=== PATIENT | male | born 1965 | race Caucasian/White ===

== ENCOUNTER 2022-11-07 09:03 | Emergency (ER) | payer BC, OTHER ==
[2022-11-07] MEDS ORDERED: Albuterol/Ipratropium 3.0-0.5 MG/3 ML Neb Soln NEB ONE (09:26)
[2022-11-07] MEDS ORDERED: methylPREDNISolone Sodium Succinate 125 MG/2 ML SDV IVPUSH ONE (09:26)
[2022-11-07 09:55] LABS: CORONAVIRUS COVID-19 NAA NEGATIVE (NEGATIVE); RESPIRATORY SYNCYTIAL VIR NAA NEGATIVE (NEGATIVE)
== END 2022-11-07 11:19 | disposition home or self-care (01) ==
LOC: DL.ED 09:03
DX: J10.1 Influenza due to other identified influenza virus with other respiratory manifestations (principal); J20.9 Acute bronchitis, unspecified; H61.21 Impacted cerumen, right ear; E78.00 Pure hypercholesterolemia, unspecified; I10 Essential (primary) hypertension; E11.9 Type 2 diabetes mellitus without complications; Z79.899 Other long term (current) drug therapy; Z79.84 Long term (current) use of oral hypoglycemic drugs; Z20.822 Contact with and (suspected) exposure to COVID-19
CPT/HCPCS: 0241U; 71046; 94640; 96374; 99284; 99285; J2930; J7620-GY

== ENCOUNTER 2023-08-14 14:53 | Emergency (ER) | payer OTHER, BC | END 2023-08-14 16:52 | disposition home or self-care (01) | LOC: DL.ED 14:53 | DX: S63.502A Unspecified sprain of left wrist, initial encounter (principal); E78.00 Pure hypercholesterolemia, unspecified; I10 Essential (primary) hypertension; E11.9 Type 2 diabetes mellitus without complications; Z79.84 Long term (current) use of oral hypoglycemic drugs; Z79.899 Other long term (current) drug therapy; W18.30XA Fall on same level, unspecified, initial encounter; Y93.01 Activity, walking, marching and hiking; Y92.410 Unspecified street and highway as the place of occurrence of the external cause | CPT/HCPCS: 73110-LT; 99283 ==